=== PATIENT | female | born 1970 | race Caucasian/White ===

== ENCOUNTER 2022-07-15 16:20 | Emergency (ER) | payer OTHER ==
[~2022-07-15] VITALS: Ht 157.5 cm; Wt 142.9 kg
[2022-07-15] MEDS ORDERED: SYNTHROID200 MCG (16:34)
[2022-07-15] MEDS ORDERED: AMLODIPINE-VAL1 EAC2 (16:34)
[2022-07-15] MEDS ORDERED: HYDROCHLOROTH12.5 MG (16:35)
== END 2022-07-15 18:55 | disposition home or self-care (01) ==
LOC: ER 16:20
DX: L03.116 Cellulitis of left lower limb (principal); L03.115 Cellulitis of right lower limb; E11.9 Type 2 diabetes mellitus without complications; I10 Essential (primary) hypertension

== ENCOUNTER 2022-07-21 08:54 | Outpatient (CLI) | payer OTHER ==
[~2022-07-21 08:54] MED LIST: AMLODIPINE-VAL1 EAC2; HYDROCHLOROTH12.5 MG; SYNTHROID200 MCG
== END 2022-07-21 08:58 | disposition home or self-care (01) ==
LOC: NUCLEAR 08:54
PROVIDERS: ATTEND Specialist
DX: I87.2 Venous insufficiency (chronic) (peripheral) (principal)